=== PATIENT | male | born 1950 ===

== ENCOUNTER 2022-04-04 08:14 | Day surgery (SDC) | payer OTHER ==
[2022-04-04] MEDS ORDERED: Lactated Ringers 1,000 ML IV ONE (08:29)
[2022-04-04] MEDS ORDERED: cefUROXime sodium 0.005 GM in Sodium Chloride Flush 30 ML*** 0.5 ML IJ ONE (09:00)
[2022-04-04] MEDS ORDERED: TETRACAINE 0.5% STERI-UNIT SOL OP ONE ×2 (09:00)
[2022-04-04] MEDS ORDERED: NON-FORMULARY ITEM OP ONE (09:00)
[2022-04-04] MEDS ORDERED: BETADINE 5% OPHTHALMIC 30 ML OP ONE (09:00)
[2022-04-04] MEDS ORDERED: Ak-Dilate OPHTHALMIC*** 1.065 ML, Cyclogyl 1% OPHTH SOL 1.065 ML, GATIFLOXACIN 0.5% OPH... OP ONE ×4 (09:00)
[2022-04-04] MEDS ORDERED: Lactated Ringers 1,000 ML IV SCH (09:00)
[2022-04-04 09:02] VITALS: BP 152/100; PULSE 68; O2SAT 98
[2022-04-04] MEDS ORDERED: Zofran 4 MG/2 ML VIAL IV PRN (11:00)
[2022-04-04] MEDS ORDERED: ACETAZOLAMIDE 250 MG TABLET PO ONE (11:00)
== END 2022-04-04 10:10 | disposition home or self-care (01) ==
LOC: SDC 08:14
PROVIDERS: ATTEND Ophthalmology
DX: Z53.8 Procedure and treatment not carried out for other reasons (principal)
CPT/HCPCS: A9270-GY